=== PATIENT | female | born 1945 | race Caucasian/White ===

== ENCOUNTER 2017-10-15 12:55 | Outpatient (CLI) | payer MEDICARE, BC ==
[~2017-10-15] VITALS: Ht 162.6 cm; Wt 85.6 kg
[2017-10-15] MEDS ORDERED: PRINIVIL20 MG PO (13:29)
[2017-10-15] MEDS ORDERED: NATURAL IRON65 MG (13:30)
[2017-10-15] MEDS ORDERED: ZOCOR 20MG20 MG PO (13:30)
[2017-10-15 13:44] LABS: MEAN CELL VOLUME 96 fl (80.0-100.0); MEAN CORPUSCULAR HGB CONC 33 g/dl (33.0-37.0); MEAN PLATELET VOLUME 11.4 fl (7.4-10.4); PLATELET COUNT 158 K/mm3 (130-400); RED BLOOD COUNT 3.35 M/mm3 (4.10-5.30)
[2017-10-15 13:49] LABS: PROTHROMBIN TIME 12.1 SECONDS (9.7-12.8)
[2017-10-15 13:52] LABS: HEMOGLOBIN 10.4 g/dl (12.5-16.0); MEAN CORPUSCULAR HEMOGLOBIN 31 pg (27.0-31.0)
[2017-10-15 13:53] LABS: CALCIUM 9.4 mg/dL (8.4-10.2); CREATININE, serum 1.01 mg/dL (0.52-1.25); POTASSIUM 4.5 mmol/L (3.4-5.0)
[2017-10-15] MEDS ORDERED: ASPI325T6 PO (15:09)
== END 2017-10-15 15:43 | disposition home or self-care (01) ==
LOC: COL.RAD 12:55 → EDSEX 13:00 → COL.RAD 13:00
PROVIDERS: Internal Medicine Interventional Cardiology
DX: I08.0 Rheumatic disorders of both mitral and aortic valves (principal); I65.23 Occlusion and stenosis of bilateral carotid arteries; I49.49 Other premature depolarization; I25.10 Atherosclerotic heart disease of native coronary artery without angina pectoris; Z87.891 Personal history of nicotine dependence
CPT/HCPCS: J2250; J3010